=== PATIENT | male | born 2000 | race Caucasian/White ===

== ENCOUNTER 2022-11-21 23:06 | Emergency (ER) | payer OTHER ==
[~2022-11-21] VITALS: Ht 177.8 cm; Wt 86.2 kg
--- NOTE | 2022-11-21 23:15 | NUR ---
SO C/O R KNEE PAIN S/P GLF FROM PLAYING [employer].
--- NOTE | 2022-11-21 23:18 | NUR ---
DR. VORA AT BEDSIDE
--- NOTE | 2022-11-21 23:18 | NUR ---
X-RAY AT BEDSIDE
[2022-11-22] MEDS ORDERED: IBUPROFEN 400 MG TABLET PO ONE
[2022-11-22] MEDS ORDERED: IBUPROFEN 400 MG TABLET ONE (00:01)
[2022-11-22 00:02] VITALS: BP 136/72
--- NOTE | 2022-11-22 00:02 | NUR ---
Patient discharged to home in stable condition. Written and verbal after care instructions given. Patient verbalizes understanding of instruction.
== END 2022-11-22 00:03 | disposition home or self-care (01) ==
LOC: ER 23:06
DX: S83.8X1A Sprain of other specified parts of right knee, initial encounter (principal); Y93.66 Activity, soccer; Y93.02 Activity, running; Y92.89 Other specified places as the place of occurrence of the external cause; Y99.8 Other external cause status
CPT/HCPCS: 73564-TC